=== PATIENT | male | born 1975 ===

== ENCOUNTER 2020-06-08 09:05 | Day surgery (SDC) | payer OTHER ==
[~2020-06-08] VITALS: Ht 177.8 cm; Wt 92.5 kg
--- NOTE | 2020-06-08 10:17 | NUR ---
Ambulatory in Day Surgery. Surgical site prepped with 2% Chlorhexidine cloth wipe. History, Chart, Medications and Allergies reviewed before start of procedure. Lungs clear T/O to Auscultation. Patient States Post-Procedure ride home has been arranged. Patient confirms NPO status and agrees with scheduled surgery. Patient reports completing Chlorhexadine shower X2 prior to admission to hospital.
--- NOTE | 2020-06-08 14:21 | NUR ---
Patient States Post-Procedure ride home has been arranged. Discharge instructions reviewed with patient. Patient verbalizes understanding. Copy given to patient to take home. Dressing to procedure site clean, dry, intact with no visible drainage, swelling, erythema or bruising noted. Discharged via wheelchair to private car for ride home.
== END 2020-06-08 22:56 | disposition home or self-care (01) ==
LOC: ORSCMMR 09:05 → ORD 10:45 → ORSCMMR 22:56
PROVIDERS: Surgery
PROC: 0YU60JZ Supplement Left Inguinal Region with Synthetic Substitute, Open Approach (ICD-10-PCS; principal; 2020-06-08 10:45)
DX: K40.90 Unilateral inguinal hernia, without obstruction or gangrene, not specified as recurrent (principal); Z87.891 Personal history of nicotine dependence
CPT/HCPCS: A9270-GY; C1781; J0690; J1100; J2250; J2370; J2405; J2704; J3010; J7120